=== PATIENT | male | born 1950 | race Caucasian/White ===

== ENCOUNTER 2022-09-22 11:18 | Emergency (ER) | payer MEDICARE, MEDICAID ==
[~2022-09-22] VITALS: Ht 171.4 cm; Wt 70.5 kg
[2022-09-22 11:46] VITALS: BP 136/85
[2022-09-22] MEDS ORDERED: ibuprofen tablet 400 MG TABLET PO ONE (13:40)
[2022-09-22] MEDS ORDERED: IBUP-1985 PO (13:53)
== END 2022-09-22 14:58 | disposition home or self-care (01) ==
LOC: ER 11:18
DX: S93.491A Sprain of other ligament of right ankle, initial encounter (principal); Z60.2 Problems related to living alone; Z88.5 Allergy status to narcotic agent; Z88.6 Allergy status to analgesic agent; Z79.899 Other long term (current) drug therapy; W01.0XXA Fall on same level from slipping, tripping and stumbling without subsequent striking against object, initial encounter; Y93.89 Activity, other specified; Y92.89 Other specified places as the place of occurrence of the external cause; Y99.8 Other external cause status
CPT/HCPCS: 29515; 73610; 73700; 99284; A6449